=== PATIENT | female | born 1940 | race Asian ===

== ENCOUNTER 2018-02-12 09:49 | Observation (INO) | payer OTHER ==
[2018-02-12 10:02] VITALS: BMI 27.1
--- NOTE | 2018-02-12 10:07 | PDOC ---
History of Present Illness - General Chief Complaint: Shortness of Breath Stated Complaint: SOB Time Seen by Provider: 02/12/18 10:07 History Source: Patient, Family - History of Present Illness Initial Comments: 02/12/18 10:23 77 year old female with PMH HTN, HLD, 1 stent, asthma presents to ED for SOB and palpitations x3 weeks. She states the SOB occurs at rest, she sleeps on 3 pillows a night, is associated with palpitations, diaphoresis, left arm numbness. She states over the last three weeks she has progressed from sleeping with one pillow at night, to 3 pillows at night. PCP - Dr. Gasca Optomechanical Engineer - Dr. Mcknight Surgical history - none Allergies - NKDA Past History - Past Medical History Allergies/Adverse Reactions: Allergies Allergy/AdvReac Type Severity Reaction Status Date / Time No Known Allergies Allergy Verified 02/12/18 10:02 Home Medications: Ambulatory Orders Albuterol Sulfate [Proventil HFA Inhaler -] 1 - 2 inh PO TID 10/04/13 Atorvastatin Ca [Lipitor] 10 mg PO HS 10/04/13 Aspirin [ASA -] 81 mg PO DAILY 05/04/15 Budesonide/Formeterol Fumarate [SYMBICORT 160/4.5mcg -] 1 inh PO DAILY 01/14/16 Losartan Potassium 50 mg PO DAILY #30 tablet 01/15/16 Meloxicam [Mobic (Nf) -] 15 mg PO DAILY #90 tablet MDD 15mg 12/09/16 Hydrochlorothiazide 12.5 mg PO DAILY 02/12/18 Asthma: Yes Cardiac Disorders: Yes (CAD) COPD: No CHF: No HTN: Yes Hypercholesterolemia: Yes - Surgical History Cardiac Surgery: Yes (stents) - Suicide/Smoking/Psychosocial Hx Smoking History: Never smoked Number of Cigarettes Smoked Daily: 0 Hx Alcohol Use: No Drug/Substance Use Hx: No Substance Use Type: None Review of Systems - Review of Systems Able to Perform ROS?: Yes Comments:: 02/12/18 10:28 ROS performed with patient and her daughter. General: denies fever, chills, night sweats, generalized weakness. HEENT: denies sore throat, rhinorrhea, ear pain. Heart: admits to palpitations, diaphoresis. denies chest pain, syncope, lower extremity swelling. Respiratory: admits to shortness of breath, cough, clear sputum production. denies hematemesis. Abdomen: denies abdominal pain, nausea, vomiting, diarrhea, constipation, blood in stool. : denies dysuria, urinary frequency, hematuria, urinary incontinence. Back: denies back pain, flank pain. Musculoskeletal: denies joint pain, muscle pain, joint swelling. Neurological: admits to left arm numbness. denies headache, dizziness, numbness , tingling, weakness. Skin: denies rash, laceration, abrasion. *Physical Exam - Vital Signs Last Vital Signs Temp Pulse Resp BP Pulse Ox 98.4 F 80 18 133/68 99 02/12/18 09:59 02/12/18 09:59 02/12/18 09:59 02/12/18 09:59 02/12/18 09:59 - Physical Exam Comments: 02/12/18 10:29 Appearance: comfortable. HEENT: head is normocephalic, atraumatic. EOMI. PERRLA. Neck: supple. Full ROM. Heart: no tachycardia. regular rhythm. no murmurs, rubs or gallops. Lungs: clear to auscultation bilaterally. no crackles, rhonchi or wheezing. no stridor. Abdomen: soft, nontender. normal bowel sounds. no rebound, guarding, masses. Back: no CVA tenderness. Extremities: Peripheral pulses intact. No lower extremity edema. Neurological: Alert. Oriented x3. CN 2-12 grossly intact. Moves all four extremities. Heart Score/ECG Review - ECG Impressions Comment:: 02/12/18 11:56 Rate 63. Regular. Normal axis. No acute ST changes. ED Treatment Course - LABORATORY CBC & Chemistry Diagram: 02/12/18 11:20 02/12/18 10:41 Medical Decision Making - Medical Decision Making 02/12/18 10:30 77 year old female with PMH HTN, HLD, 1 stent, asthma presenting for SOB associated with palpitations, diaphoresis, cough, left arm numbness x3 weeks. Denies chest pain, fever, chills, nausea, vomiting, abdominal pain, lightheadedness, dizziness, weakness. Initial Vital Signs Temp Pulse Resp BP Pulse Ox 98.4 F 80 18 133/68 99 02/12/18 09:59 02/12/18 09:59 02/12/18 09:59 02/12/18 09:59 02/12/18 09:59 Afebrile. No tachycardia or bradycardia. No hypotension. Pending EKG, CXR, labs, UA. 02/12/18 12:21 No leukocytosis. No kidney dysfunction. Troponin negative. TSH normal. BNP 113.05 HEART score = 4 *DC/Admit/Observation/Transfer Diagnosis at time of Disposition: Shortness of breath, Palpitations, Hypertension, HLD (hyperlipidemia), CAD ( coronary artery disease), Asthma - Discharge Dispostion Condition at time of disposition: Stable Decision to Admit order: Yes - Referrals Referrals: Girish Gasca MD [Primary Care Provider] - - Patient Instructions - Post Discharge Activity
--- NOTE | 2018-02-12 10:26 | PDOC ---
Attending Attestation - Resident Resident Name: Olga Swann - ED Attending Attestation I have performed the following: I have examined & evaluated the patient, The case was reviewed & discussed with the resident, I agree w/resident's findings & plan, Exceptions are as noted - HPI HPI: 02/12/18 10:36 77-year-old female with a history of hypertension, hyperlipidemia, asthma, arthritis, CAD status post stent presents emergency Department with 2 weeks of progressive palpitations and 2 days of shortness of breath. Patient has seen her automatic winder operator Dr. Mcknight for any symptoms and was given a heart monitor which patient's daughter reports has broken twice. Patient also reports intermittent right and left-sided varying chest pain for months. For the last 3 weeks patient has been sleeping on 3 pillows due to her shortness of breath, however last night was unable to sleep due to the shortness of breath. Patient does not take any water pills. Patient normally takes walks around her block with her and can usually do 3 laps however has been having difficulty recently. Her daughter states she becomes winded now at the end of her walks. Denies any fevers or chills. Patient has a chronic nonproductive cough due to ALLERGIES but no new cough. Denies recent travel or immobility. - Physicial Exam PE: 02/12/18 10:52 GENERAL: Awake, alert, and fully oriented, in no acute distress HEAD: No signs of trauma EYES: PERRLA, EOMI, sclera anicteric, conjunctiva clear ENT: Auricles normal inspection, hearing grossly normal, nares patent, oropharynx clear without exudates. Moist mucosa NECK: Normal ROM, supple, no lymphadenopathy, JVD, or masses LUNGS: Breath sounds equal, clear to auscultation bilaterally. No wheezes, and no crackles HEART: Regular rate and rhythm, normal S1 and S2, no murmurs, rubs or gallops ABDOMEN: Soft, nontender, normoactive bowel sounds. No guarding, no rebound. No masses EXTREMITIES: Normal range of motion, trace b/l LE edema to the mid calves. No clubbing or cyanosis. No cords, erythema, or tenderness NEUROLOGICAL: Normal speech, cranial nerves intact, negative pronator drift, 5/ 5 strength in all 4 extremities, normal sensation to light touch in all 4 extremities, normal cerebellar exam, normal gait, normal reflexes and tone SKIN: Warm, Dry, normal turgor, no rashes or lesions noted. - Medical Decision Making 02/12/18 10:56 77yo F hx HTN, HL, CAD presents to the ED with SOB at exertion and rest. Pt also reports 3 pillow orthopnea. Vitals wnl. Exam with trace LE edema. Concern for ACS vs CHF. Plan -labs -cxr -ekg -c/s Dr. Mcknight -likely tele obs Heart Score/ECG Review - History History: Moderately suspicious - Electrocardiogram EKG: Normal - Age Age: >/= 65 - Risk Factors Based on the list above the patient has:: >/=3 risk factors or Hx atherosclerotic disease - Troponin Troponin: </= normal limit - Score Heart Score - Total: 5 #1 02/12/18 11:10 Twelve-lead EKG was performed and reviewed by me. Normal sinus rhythm, rate 63. Normal axis and intervals. No ST elevations or T-wave inversions.
[2018-02-12 10:49] LABS: HEMATOCRIT 40.4 % (32.4-45.2); MCH 31.4 pg (25.7-33.7); MCHC 34.6 g/dl (32.0-36.0); MEAN CELL VOLUME 90.8 fl (80-96); PLATELET COUNT 286 K/MM3 (134-434); RBC 4.45 M/mm3 (3.60-5.2); RDW 12.3 % (11.6-15.6); WHITE BLOOD COUNT 6.7 K/mm3 (4.0-10.0)
[2018-02-12 11:15] LABS: INR 0.95 (0.82-1.09); PROTHROMBIN TIME (PATIENT) 10.7 SEC (9.7-13.0)
[2018-02-12 11:17] LABS: ACTIVATED PTT 28.6 SECONDS (25.2-36.5)
[2018-02-12 11:18] LABS: ALBUMIN 3.8 g/dl (3.4-5.0); ANION GAP 10 (8-16); BILIRUBIN,TOTAL 0.8 mg/dL (0.2-1.0); BLOOD UREA NITROGEN 22 mg/dL (7-18); CALCIUM 9.1 mg/dL (8.5-10.1); CHLORIDE 97 mmol/L (98-107); CO2 24 mmol/L (21-32); CREATININE 1.1 mg/dL (0.55-1.02); GLUCOSE,RANDOM 142 mg/dL (74-106); POTASSIUM 3.7 mmol/L (3.5-5.1); SGOT/AST 22 U/L (15-37); SGPT/ALT 30 U/L (12-78); SODIUM 131 mmol/L (136-145); TOT PROT 7.7 g/dl (6.4-8.2)
[2018-02-12 11:21] LABS: ALK PHOS 95 U/L (45-117)
[2018-02-12 11:23] LABS: N-TERMINAL BNP 113.05 pg/ml (5-450)
[2018-02-12 11:31] LABS: BASO % 0.9 % (0-2.0); EOS % 3.3 % (0-4.5); HEMATOCRIT 38.9 % (32.4-45.2); HEMOGLOBIN 13.4 GM/dL (10.7-15.3); LYMPH % 28.9 % (8-40); MCH 31.3 pg (25.7-33.7); MCHC 34.6 g/dl (32.0-36.0); MEAN CELL VOLUME 90.6 fl (80-96); MEAN PLT VOLUME 8.4 fl (7.5-11.1); MONO % 4.5 % (3.8-10.2); NEUT % 62.4 % (42.8-82.8); PLATELET COUNT 295 K/MM3 (134-434); RBC 4.29 M/mm3 (3.60-5.2); RDW 12.6 % (11.6-15.6); WHITE BLOOD COUNT 6.7 K/mm3 (4.0-10.0)
[2018-02-12 12:10] LABS: URINE APPEARANCE CLEAR; URINE BILIRUBIN NEGATIVE (<2.0 mg/dL); URINE COLOR STRAW; URINE GLUCOSE (UA) NEGATIVE (NEGATIVE); URINE KETONE NEGATIVE (NEGATIVE); URINE LEUK ESTERASE NEGATIVE (NEGATIVE); URINE NITRITE NEGATIVE (NEGATIVE); URINE PROTEIN NEGATIVE (NEGATIVE); URINE UROBILINOGEN NEGATIVE mg/dL (0.2-1.0)
[2018-02-12 12:23] LABS: EPI CELLS RARE /HPF (FEW)
[2018-02-12] MEDS ORDERED: ASPIRIN 325 MG TABLET PO ONE (12:26)
[2018-02-12] MEDS ORDERED: ASPIRIN 325 MG TABLET ONE (12:52)
--- NOTE | 2018-02-12 13:12 | HP ---
CHIEF COMPLAINT: shortness of breath, cough PCP: Dr. Gasca HISTORY OF PRESENT ILLNESS: Patient is a 77 year old female with a significant past medical history of hypertension, hyperlipidemia, CAD s/p stents 2008, asthma, syncope and orthostatic hypotension. Patient presents to the ED today with episodes of 3 weeks of worsening shortness of breath with physical activity and now worsening shortness of breath at rest. She often feels intermittent palpitations and sharp mid sternal chest pain at rest. Patient reports propping herself on 3 pillows at night as she is unable to tolerate laying flat. She reports diffused diaphoresis in the past 2 days even with the air conditioner on. Patient normally is able to take walks around the block but has been having difficulty and reports fatigue and unable to complete her normal walks. She denies any fevers or chills. Patient has a chronic nonproductive cough. Patient sees Dr. Mcknight for palpitations and a holter monitor was placed. Patient reports that the holter monitor was not working properly and she was unable to wear it. ER course was notable for: (1) na 131 (2) bun/creat 22/1.1 (3) bnp 113, tsh 1.47 (4) chest xray, no acute pathology Recent Travel: Social History: Smoking: none Alcohol: none Drugs: none Family History: Allergies No Known Allergies Allergy (Verified 02/12/18 10:02) HOME MEDICATIONS: Home Medications Medication Instructions Recorded Albuterol Sulfate [Proventil HFA 1 - 2 inh PO TID 10/04/13 Inhaler -] Atorvastatin Ca [Lipitor] 10 mg PO HS 10/04/13 Aspirin [ASA -] 81 mg PO DAILY 05/04/15 Budesonide/Formeterol Fumarate 1 inh PO DAILY 01/14/16 [SYMBICORT 160/4.5mcg -] Losartan Potassium 50 mg PO DAILY #30 tablet 01/15/16 Meloxicam [Mobic (Nf) -] 15 mg PO DAILY #90 tablet MDD 15mg 12/09/16 Hydrochlorothiazide 12.5 mg PO DAILY 02/12/18 PHYSICAL EXAMINATION Vital Signs - 24 hr 02/12/18 02/12/18 02/12/18 09:59 12:15 12:16 Temperature 98.4 F Pulse Rate 80 Pulse Rate [ 68 Apical] Respiratory 18 20 Rate Blood Pressure 133/68 Blood Pressure 116/58 [Left Arm] O2 Sat by Pulse 99 98 98 Oximetry (%) GENERAL: Awake, alert, and fully oriented, in no acute distress. HEAD: Normal with no signs of trauma. EYES: Pupils equal, round and reactive to light, extraocular movements intact, sclera anicteric, conjunctiva clear. No lid lag. EARS, NOSE, THROAT: Ears normal, nares patent, oropharynx clear without exudates. Moist mucous membranes. NECK: Normal range of motion, supple without lymphadenopathy, JVD, or masses. LUNGS: Breath sounds equal, clear to auscultation bilaterally. No wheezes, and no crackles. No accessory muscle use. HEART: Regular rate and rhythm ABDOMEN: Soft, nontender, not distended, normoactive bowel sounds, no guarding, no rebound, no masses. No hepatomegaly or splenomegaly. MUSCULOSKELETAL: Normal range of motion at all joints. No bony deformities or tenderness. No CVA tenderness. UPPER EXTREMITIES: 2+ pulses, warm, well-perfused. No cyanosis. No clubbing. No peripheral edema. LOWER EXTREMITIES: 2+ pulses, warm, well-perfused. No calf tenderness. No peripheral edema. NEUROLOGICAL: Normal speech. PSYCHIATRIC: Cooperative. Good eye contact. Appropriate mood and affect. SKIN: Warm, dry, normal turgor, no rashes or lesions noted, normal capillary refill. Laboratory Results - last 24 hr 02/12/18 02/12/18 02/12/18 10:41 10:41 10:41 WBC 6.7 RBC 4.45 Hgb 14.0 Hct 40.4 MCV 90.8 MCH 31.4 MCHC 34.6 RDW 12.3 Plt Count 286 MPV 8.0 D Absolute Neuts (auto) Neutrophils % Lymphocytes % Monocytes % Eosinophils % Basophils % Nucleated RBC % PT with INR 10.70 INR 0.95 PTT (Actin FS) 28.6 Sodium 131 L Potassium 3.7 Chloride 97 L Carbon Dioxide 24 Anion Gap 10 BUN 22 H Creatinine 1.1 H Creat Clearance w eGFR 48.04 Random Glucose 142 H Calcium 9.1 Total Bilirubin 0.8 AST 22 ALT 30 Alkaline Phosphatase 95 Creatine Kinase 144 Troponin I 0.02 B-Natriuretic Peptide Total Protein 7.7 Albumin 3.8 TSH Urine Color Urine Appearance Urine pH Ur Specific [place] Urine Protein Urine Glucose (UA) Urine Ketones Urine Blood Urine Nitrite Urine Bilirubin Urine Urobilinogen Ur Leukocyte Esterase Urine WBC (Auto) Urine RBC (Auto) Ur Epithelial Cells 02/12/18 02/12/18 02/12/18 10:41 11:20 11:54 WBC 6.7 RBC 4.29 Hgb 13.4 Hct 38.9 MCV 90.6 MCH 31.3 MCHC 34.6 RDW 12.6 Plt Count 295 MPV 8.4 Absolute Neuts (auto) 4.2 Neutrophils % 62.4 Lymphocytes % 28.9 Monocytes % 4.5 Eosinophils % 3.3 Basophils % 0.9 Nucleated RBC % 0 PT with INR INR PTT (Actin FS) Sodium Potassium Chloride Carbon Dioxide Anion Gap BUN Creatinine Creat Clearance w eGFR Random Glucose Calcium Total Bilirubin AST ALT Alkaline Phosphatase Creatine Kinase Troponin I B-Natriuretic Peptide 113.05 Total Protein Albumin TSH 1.47 Urine Color Straw Urine Appearance Clear Urine pH 5.0 Ur Specific [place] 1.005 Urine Protein Negative Urine Glucose (UA) Negative Urine Ketones Negative Urine Blood 1+ H Urine Nitrite Negative Urine Bilirubin Negative Urine Urobilinogen Negative Ur Leukocyte Esterase Negative Urine WBC (Auto) 1 Urine RBC (Auto) <1 Ur Epithelial Cells Rare ASSESSMENT/PLAN: Patient is a 77 year old female with a significant past medical history of hypertension, hyperlipidemia, CAD s/p stents 2008, asthma, syncope and orthostatic hypotension. Patient presents to the ED today with episodes of 3 weeks of worsening shortness of breath with physical activity and now worsening shortness of breath at rest. She often feels intermittent palpitations and sharp mid sternal chest pain at rest and difficulty laying flat. Card: Shortness of breath/Orthopena: Clear lungs on exam, chest xray with no acute pathology. Tolerating room air. Monitor oxygen saturations pre and post. Rule out ACS/Palpitations: Monitor on tele. ekg within normal limits. trend troponins. Hypertension: Continue home medications of Losartan and HCTZ CAD s/p stents: on ASA daily. On Lipitor. Pulm: Asthma: not in acute exacerbation. On home inhalers. fen PO adequate monitor electrolytes low salt diet prophy LOS <48 hours, deferred a/c Visit type - Emergency Visit Emergency Visit: Yes ED Registration Date: 02/12/18 Care time: The patient presented to the Emergency Department on the above date and was hospitalized for further evaluation of their emergent condition. - New Patient This patient is new to me today: Yes Date on this admission: 02/13/18 - Critical Care Critical Care patient: No Hospitalist Screening - Colonoscopy Questionnaire Colonoscopy Questionnaire: Colonoscopy Questionnaire - Patient: 50 - 75 years old and never had a screening colonoscopy: Unknown History of colon or rectal polyps, or CA: Unknown History of IBD, Crohn's disease or UC: Unknown History of abdominal radiation therapy as a child: Unknown - Relative: 1 with colon or rectal CA, or polyps at age 60 or younger: Unknown Colon or rectal CA diagnosed at age 45 or younger: Unknown Multiple relatives with colon or rectal CA: Unknown - Outcome: Screening Result: Negative Screen
[2018-02-12] MEDS ORDERED: ALBUTEROL SO4 2.5/IPRATROPIUM 0.5 INH SOL 3 ML VIAL.NEB. NEB PRN (14:33)
[2018-02-12] MEDS ORDERED: SODIUM CHLORIDE 1,000 ML IV SCH (14:45)
--- NOTE | 2018-02-12 15:59 | CON.CARD ---
Consult Consult Specialty:: Cardiology Referred by:: ER Reason for Consultation:: palpitations, sob - History of Present Illness Chief Complaint: palpitations sob History of Present Illness: 77 year old woman who follows with me in the office with a history of HTN, HLD, CAD s/p prox and mid LAD stents 2008 in the [facility], cardiac cath 2014 after an abnormal nuclear stress test showed patent stents and otherwise non- obstructive CAD, chronic Asthma, history of orthostatic hypotension and syncope in the setting of intravascular depletion, now admitted with c/o palpitations and sob. Pt was seen recently in the office with c/o palpitations. an event monitor was placed but due to technical difficulties with the monitor at home she has not been able to wear it. she states palpitations occur mainly at night when in bed she feels her heart pounding and then pauses for a second. she also admits to sob and orthopnea. she has been using her symbicort and she has been using her Albuterol 2-3 times per day for the past several weeks including right before bed. - Past Medical History Cardio/Vascular: Yes: CAD, HTN, Hyperlipdemia Pulmonary: Yes: Asthma - Past Surgical History Past Surgical History: Yes: Stent - Alcohol/Substance Use Hx Alcohol Use: No History of Substance Use: reports: None - Smoking History Smoking history: Never smoked Aproximately how many cigarettes per day: 0 - Social History Usual Living Arrangement: With Spouse ADL: Independent History of Recent Travel: No Home Medications - Allergies Allergies/Adverse Reactions: Allergies Allergy/AdvReac Type Severity Reaction Status Date / Time No Known Allergies Allergy Verified 02/12/18 10:02 - Home Medications Home Medications: Ambulatory Orders Albuterol Sulfate [Proventil HFA Inhaler -] 1 - 2 inh PO TID 10/04/13 Atorvastatin Ca [Lipitor] 10 mg PO HS 10/04/13 Aspirin [ASA -] 81 mg PO DAILY 05/04/15 Budesonide/Formeterol Fumarate [SYMBICORT 160/4.5mcg -] 1 inh PO DAILY 01/14/16 Losartan Potassium 50 mg PO DAILY #30 tablet 01/15/16 Meloxicam [Mobic (Nf) -] 15 mg PO DAILY #90 tablet MDD 15mg 12/09/16 Hydrochlorothiazide 12.5 mg PO DAILY 02/12/18 Vital Signs: Vital Signs Temperature 98.4 F 02/12/18 09:59 Pulse Rate 68 02/12/18 12:15 Respiratory Rate 20 02/12/18 12:15 Blood Pressure 116/58 02/12/18 12:15 O2 Sat by Pulse Oximetry (%) 98 02/12/18 12:16 - Other Data Labs, Other Data: CBC, BMP 02/12/18 11:20 02/12/18 10:41 INR, PTT INR 0.95 (0.82-1.09) 02/12/18 10:41 Troponin, BNP 02/12/18 02/12/18 10:41 10:41 Troponin I 0.02 B-Natriuretic Peptide 113.05 Troponin, BNP 02/12/18 02/12/18 10:41 10:41 Troponin I 0.02 B-Natriuretic Peptide 113.05 Assessment/Plan 77 year old woman who follows with me in the office with a history of HTN, HLD, CAD s/p prox and mid LAD stents 2008 in the [facility], cardiac cath 2014 after an abnormal nuclear stress test showed patent stents and otherwise non- obstructive CAD, chronic Asthma, history of orthostatic hypotension and syncope in the setting of intravascular depletion, now admitted with c/o palpitations and sob. Pt was seen recently in the office with c/o palpitations. an event monitor was placed but due to technical difficulties with the monitor at home she has not been able to wear it. she states palpitations occur mainly at night when in bed she feels her heart pounding and then pauses for a second. she also admits to sob and orthopnea. she has been using her symbicort and she has been using her Albuterol 2-3 times per day for the past several weeks including right before bed. Palpitations-unknown etiology but based on history sounds most likely to be PVCs -possibly stimulated by frequent Albuterol use -ekg is wnl -cardiac enzymes wnl -monitor on tele overnight to evaluate for arrhythmia -if no events overnight pt is acceptable for discharge home from cardiac standpoint with close outpatient fup SOB-likely due to chronic asthma -ideally would have pulmonary evaluation and PFTs as outpatient but due to insurance she has been unable to get to a director of strategic sourcing -no signs of CHF on exam History of Syncope-likely secondary to orthostatic hypotension secondary to dehydration -cont home meds for now -encourage po fluid intake -hold off on IVF hydration for now CAD s/p LAD stents 2008 -cont ASA 81mg daily -cont statin -not on bblocker due to asthma and history of sinus bradycardia HTN-have taken a lenient approach as outpatient to HTN with target <150/90 due to history of orthostatic hypotension -cont home meds for now
[2018-02-12] MEDS ORDERED: ATORVASTATIN CA 10 MG TABLET (FP) PO SCH (22:00)
[2018-02-12] MEDS: BUDESONIDE/FORMETEROL FUMARATE 160/4.5 mcg INHALER IH SCH (22:07)
[2018-02-13 07:19] LABS: BASO % 0.9 % (0-2.0); EOS % 4.6 % (0-4.5); HEMATOCRIT 39.9 % (32.4-45.2); HEMOGLOBIN 13.8 GM/dL (10.7-15.3); LYMPH % 36.2 % (8-40); MCH 31.6 pg (25.7-33.7); MCHC 34.5 g/dl (32.0-36.0); MEAN CELL VOLUME 91.6 fl (80-96); MEAN PLT VOLUME 7.9 fl (7.5-11.1); MONO % 5.9 % (3.8-10.2); NEUT % 52.4 % (42.8-82.8); PLATELET COUNT 272 K/MM3 (134-434); RBC 4.36 M/mm3 (3.60-5.2); RDW 12.5 % (11.6-15.6); WHITE BLOOD COUNT 7.5 K/mm3 (4.0-10.0)
[2018-02-13 07:56] LABS: ALBUMIN 3.6 g/dl (3.4-5.0); ANION GAP 7 (8-16); BILIRUBIN,TOTAL 0.8 mg/dL (0.2-1.0); BLOOD UREA NITROGEN 19 mg/dL (7-18); CALCIUM 9.3 mg/dL (8.5-10.1); CHLORIDE 102 mmol/L (98-107); CO2 28 mmol/L (21-32); CREATININE 0.9 mg/dL (0.55-1.02); GLUCOSE,RANDOM 117 mg/dL (74-106); MAGNESIUM 2.1 mg/dL (1.8-2.4); POTASSIUM 4.3 mmol/L (3.5-5.1); SGOT/AST 16 U/L (15-37); SGPT/ALT 27 U/L (12-78); SODIUM 137 mmol/L (136-145)
[2018-02-13 07:58] LABS: ALK PHOS 91 U/L (45-117); TOT PROT 7.3 g/dl (6.4-8.2)
[2018-02-13] MEDS ORDERED: LOSARTAN POTASSIUM 50 MG TABLET (FP) PO SCH (10:00)
[2018-02-13] MEDS ORDERED: BUDESONIDE/FORMETEROL FUMARATE 160/4.5 mcg INHALER IH SCH (10:00)
[2018-02-13] MEDS ORDERED: ASPIRIN 81 MG CHEWABLE TABLETS PO SCH (10:00)
[2018-02-13] MEDS ORDERED: HYDROCHLOROTHIAZIDE 12.5 MG CAPSULE (FP) PO SCH (10:00)
[2018-02-13] MEDS ORDERED: PT OWN MED DRAWER 7, Y5N ONE (10:20)
[2018-02-13] MEDS: BUDESONIDE/FORMETEROL FUMARATE 160/4.5 mcg INHALER IH SCH (10:21)
--- NOTE | 2018-02-13 10:21 | EKG ---
Test Reason : Blood Pressure : / mmHG Vent. Rate : 063 BPM Atrial Rate : 063 BPM P-R Int : 146 ms QRS Dur : 070 ms QT Int : 410 ms P-R-T Axes : 039 063 048 degrees QTc Int : 419 ms NORMAL SINUS RHYTHM NORMAL ECG WHEN COMPARED WITH ECG OF 14-JAN-2016 17:04, NO SIGNIFICANT CHANGE WAS FOUND Confirmed by JAGRUTI GRISSOM MD ([id number]) on 02/13/2018 10:21:14 AM Referred By: Confirmed By:JAGRUTI GRISSOM MD
--- NOTE | 2018-02-13 14:13 | PN ---
Progress Note, Physician Chief Complaint: palpitations History of Present Illness: 77 year old woman who follows with me in the office with a history of HTN, HLD, CAD s/p prox and mid LAD stents 2008 in the [facility], cardiac cath 2014 after an abnormal nuclear stress test showed patent stents and otherwise non- obstructive CAD, chronic Asthma, history of orthostatic hypotension and syncope in the setting of intravascular depletion, now admitted with c/o palpitations and sob. Pt was seen recently in the office with c/o palpitations. an event monitor was placed but due to technical difficulties with the monitor at home she has not been able to wear it. she states palpitations occur mainly at night when in bed she feels her heart pounding and then pauses for a second. she also admits to sob and orthopnea. she has been using her symbicort and she has been using her Albuterol 2-3 times per day for the past several weeks including right before bed. - Current Medication List Current Medications: Active Medications Albuterol/Ipratropium (Duoneb -) 1 amp NEB Q4H PRN PRN Reason: SHORTNESS OF BREATH Aspirin (Asa -) 81 mg PO DAILY [facility] Last Admin: 02/13/18 10:21 Dose: 81 mg Atorvastatin Calcium (Lipitor -) 10 mg PO HS [facility] Last Admin: 02/12/18 22:08 Dose: 10 mg Budesonide/Formoterol Fumarate (Symbicort 160/4.5mcg -) 2 puff IH BID [facility] Last Admin: 02/13/18 10:21 Dose: 2 puff Hydrochlorothiazide (Hctz -) 12.5 mg PO DAILY [facility] Last Admin: 02/13/18 10:21 Dose: 12.5 mg Losartan Potassium (Cozaar -) 50 mg PO DAILY [facility] Last Admin: 02/13/18 10:21 Dose: 50 mg - Objective Vital Signs: Vital Signs Temperature 98.3 F 02/13/18 05:54 Pulse Rate 56 L 02/13/18 05:54 Respiratory Rate 18 02/13/18 09:00 Blood Pressure 131/65 02/13/18 05:54 O2 Sat by Pulse Oximetry (%) 98 02/13/18 09:00 Constitutional: Yes: No Distress Neck: Yes: WNL Cardiovascular: Yes: Regular Rate and Rhythm, S1, S2. No: JVD, Murmur Respiratory: Yes: CTA Bilaterally Gastrointestinal: Yes: Soft Edema: No Labs: CBC, BMP 02/13/18 06:30 02/13/18 06:30 INR, PTT INR 0.95 (0.82-1.09) 02/12/18 10:41 Problem List - Problems (1) Palpitations Code(s): R00.2 - PALPITATIONS Assessment/Plan 77 year old woman who follows with me in the office with a history of HTN, HLD, CAD s/p prox and mid LAD stents 2008 in the [facility], cardiac cath 2014 after an abnormal nuclear stress test showed patent stents and otherwise non- obstructive CAD, chronic Asthma, history of orthostatic hypotension and syncope in the setting of intravascular depletion, now admitted with c/o palpitations and sob. Pt was seen recently in the office with c/o palpitations. an event monitor was placed but due to technical difficulties with the monitor at home she has not been able to wear it. she states palpitations occur mainly at night when in bed she feels her heart pounding and then pauses for a second. she also admits to sob and orthopnea. she has been using her symbicort and she has been using her Albuterol 2-3 times per day for the past several weeks including right before bed. Palpitations- likely due to pvc's. On telemetry shows occasional pvc's and ventricular trigeminy. On atrial run 14 beats. TSH normal Lytes normal Exam unremarkable Baseline ekg normal Description of symptoms sound like pvc however baseline HR runs 50s-60s. Cannot add any av jerald blocking agents at this time. No further cardiac work up as inpatient. Avoid caffeine. Albuterol only as needed as can exacerbate. Follow up with Dr. Mcknight as outpatient. Can have 24 hour holter at that time to see pvc burden and if symptoms very bad can consider ablation. CAD s/p LAD stents 2008 -cont ASA 81mg daily -cont statin -not on bblocker due to asthma and history of sinus bradycardia Plan for DC home.
--- NOTE | 2018-02-13 14:38 | DS ---
Physical Exam: SUBJECTIVE: In no acute distress, feels well. comfortable. OBJECTIVE: discharge home with cardiology follow up outpatient no respiratory distress, vitals stable, patient feels well, ambulated with respiratory therapist with normal oxygen saturations Vital Signs Period Temp Pulse Resp BP Sys/Bennett Pulse Ox Last 24 Hr 97.3 F-98.5 F 56-85 18-18 115-137/61-67 98-98 PHYSICAL EXAM GENERAL: Awake, alert, and fully oriented, in no acute distress. HEAD: Normal with no signs of trauma. EYES: Pupils equal, round and reactive to light, extraocular movements intact, sclera anicteric, conjunctiva clear. No lid lag. EARS, NOSE, THROAT: Ears normal, nares patent, oropharynx clear without exudates. Moist mucous membranes. NECK: Normal range of motion, supple without lymphadenopathy, JVD, or masses. LUNGS: Breath sounds equal, clear to auscultation bilaterally. No wheezes, and no crackles. No accessory muscle use. HEART: Regular rate and rhythm ABDOMEN: Soft, nontender, not distended, normoactive bowel sounds, no guarding, no rebound, no masses. No hepatomegaly or splenomegaly. MUSCULOSKELETAL: Normal range of motion at all joints. No bony deformities or tenderness. No CVA tenderness. UPPER EXTREMITIES: 2+ pulses, warm, well-perfused. No cyanosis. No clubbing. No peripheral edema. LOWER EXTREMITIES: 2+ pulses, warm, well-perfused. No calf tenderness. No peripheral edema. NEUROLOGICAL: Normal speech. PSYCHIATRIC: Cooperative. Good eye contact. Appropriate mood and affect. SKIN: Warm, dry, normal turgor, no rashes or lesions noted, normal capillary refill. LABS Laboratory Results - last 24 hr 02/12/18 02/12/18 02/12/18 17:03 18:04 23:30 WBC RBC Hgb Hct MCV MCH MCHC RDW Plt Count MPV Absolute Neuts (auto) Neutrophils % Lymphocytes % Monocytes % Eosinophils % Basophils % Nucleated RBC % Sodium Potassium Chloride Carbon Dioxide Anion Gap BUN Creatinine Creat Clearance w eGFR POC Glucometer 130.84088 114 Random Glucose Calcium Magnesium Total Bilirubin AST ALT Alkaline Phosphatase Troponin I 0.02 Total Protein Albumin 02/13/18 02/13/18 02/13/18 05:56 06:30 06:30 WBC 7.5 RBC 4.36 Hgb 13.8 Hct 39.9 MCV 91.6 MCH 31.6 MCHC 34.5 RDW 12.5 Plt Count 272 MPV 7.9 Absolute Neuts (auto) 3.9 Neutrophils % 52.4 Lymphocytes % 36.2 D Monocytes % 5.9 Eosinophils % 4.6 H Basophils % 0.9 Nucleated RBC % 0 Sodium 137 Potassium 4.3 Chloride 102 Carbon Dioxide 28 Anion Gap 7 L BUN 19 H Creatinine 0.9 Creat Clearance w eGFR > 60 POC Glucometer 112 Random Glucose 117 H Calcium 9.3 Magnesium 2.1 Total Bilirubin 0.8 AST 16 ALT 27 Alkaline Phosphatase 91 Troponin I 0.02 Total Protein 7.3 Albumin 3.6 02/13/18 06:30 WBC RBC Hgb Hct MCV MCH MCHC RDW Plt Count MPV Absolute Neuts (auto) Neutrophils % Lymphocytes % Monocytes % Eosinophils % Basophils % Nucleated RBC % Sodium Potassium Chloride Carbon Dioxide Anion Gap BUN Creatinine Creat Clearance w eGFR POC Glucometer Random Glucose Calcium Magnesium Total Bilirubin AST ALT Alkaline Phosphatase Troponin I Cancelled Total Protein Albumin HOSPITAL COURSE: Date of Admission:02/12/18 Date of Discharge: 02/13/18 Patient is a 77 year old female with a significant past medical history of hypertension, hyperlipidemia, CAD s/p stents 2008, asthma, syncope and orthostatic hypotension. Patient presents to the ED today with episodes of 3 weeks of worsening shortness of breath with physical activity and now worsening shortness of breath at rest. She often feels intermittent palpitations and sharp mid sternal chest pain at rest and difficulty laying flat. Card: Shortness of breath/Orthopena: resolved Clear lungs on exam, chest xray with no acute pathology. Tolerating room air. Pre and post oxygen normal saturations. Ruled out ACS/Palpitations: PVCs on tele. ekg within normal limits. Normal troponins. Cardiology follow up outpatient. Hypertension: Continue home medications of Losartan and HCTZ CAD s/p stents: on ASA daily. On Lipitor. Pulm: Asthma: not in acute exacerbation. On home inhalers. Discharge home with close follow up with shank rander. Minutes to complete discharge: 45 Discharge Summary Reason For Visit: HYPERTENSION; SHORTNESS OF BREATH; PALPITATIONS Current Active Problems Palpitations (Acute) Shortness of breath (Acute) Asthma (Chronic) CAD (coronary artery disease) (Chronic) HLD (hyperlipidemia) (Chronic) Hypertension (Chronic) Condition: Improved - Instructions Diet, Activity, Other Instructions: Mrs Sharma: You were under observation in the hospital for palpitation and shortness of breath. You were seen by a shank rander and were placed on the night monitor and you were noted to have premature ventricular contractions. This means that your heart has premature beats. Please continue to hydrate with at least 6-8 glasses of water per day and avoid caffeine and products that contain caffeine. We also recommend that you use Albuterol only as needed as albuterol can cause premature heart beats. Dr. Mcknight would like for you to follow up in his office for further monitoring. Please make an appointment with Dr. Mcknight. We tested your oxygen saturations with a respiratory therapist and the results were normal. Continue Aspirin 81mg daily, and your current home medications. Referrals: Girish Gasca MD [Primary Care Provider] - 1 Week Disposition: HOME - Home Medications Comprehensive Discharge Medication List: Ambulatory Orders Albuterol Sulfate [Proventil HFA Inhaler -] 1 - 2 inh PO TID 10/04/13 Atorvastatin Ca [Lipitor] 10 mg PO HS 10/04/13 Aspirin [ASA -] 81 mg PO DAILY 05/04/15 Budesonide/Formeterol Fumarate [SYMBICORT 160/4.5mcg -] 1 inh PO DAILY 01/14/16 Losartan Potassium 50 mg PO DAILY #30 tablet 01/15/16 Meloxicam [Mobic (Nf) -] 15 mg PO DAILY #90 tablet MDD 15mg 12/09/16 Hydrochlorothiazide 12.5 mg PO DAILY 02/12/18 This patient is new to me today: No Emergency Visit: Yes ED Registration Date: 02/12/18 Care time: The patient presented to the Emergency Department on the above date and was hospitalized for further evaluation of their emergent condition. Critical Care patient: No - Discharge Referral Referred to [facility] No
[2018-02-13 16:13] VITALS: TEMP 97.8
[2018-02-13 18:39] VITALS: BP 117/57; PULSE 67
== END 2018-02-13 19:11 | disposition home or self-care (01) ==
LOC: JER 09:49 → JERBED 12:19 → J4S 19:53
PROVIDERS: ADMIT Internal Medicine; ATTEND Nurse Practitioner Family
PROC: 3E0F7GC Introduction of Other Therapeutic Substance into Respiratory Tract, Via Natural or Artificial Opening (ICD-10-PCS; principal; 2018-02-12)
PROC: 3E0337Z Introduction of Electrolytic and Water Balance Substance into Peripheral Vein, Percutaneous Approach (ICD-10-PCS; 2018-02-12)
DX: R06.02 Shortness of breath (principal); R00.2 Palpitations; I10 Essential (primary) hypertension; E78.5 Hyperlipidemia, unspecified; I25.10 Atherosclerotic heart disease of native coronary artery without angina pectoris; J45.909 Unspecified asthma, uncomplicated; Z95.5 Presence of coronary angioplasty implant and graft; Z79.82 Long term (current) use of aspirin
CPT/HCPCS: 36415; 71046-TC-FY; 80053; 81003; 81015; 82550; 82962; 83735; 83880; 84443; 84484; 85025; 85027; 85610; 85730; 93005; 93010; 94640; 94761; 99285-25; G0378; J7030

== ENCOUNTER 2022-01-31 12:47 | Observation (INO) | payer OTHER ==
[2022-01-31 16:00] LABS: BASO % 0.4 % (0-2.0); EOS % 0.8 % (0-4.5); HEMATOCRIT 43.1 % (32.4-45.2); HEMOGLOBIN 14.6 GM/dL (10.7-15.3); LYMPH % 16.8 % (8-40); MCHC 33.8 g/dl (32.0-36.0); MEAN CELL VOLUME 88.7 fl (80-96); MEAN PLT VOLUME 7.3 fl (7.5-11.1); MONO % 2.9 % (3.8-10.2); NEUT % 79.1 % (42.8-82.8); PLATELET COUNT 269 10^3/uL (134-434); RBC 4.85 M/mm3 (3.60-5.2); RDW 12.6 % (11.6-15.6); WHITE BLOOD COUNT 12.6 K/mm3 (4.0-10.0)
[2022-01-31 16:03] LABS: EPI CELLS 33 /uL (0-25.1); HYALINE CASTS 1 /uL (0-3.1); PH,URINE 5.5 (5.0-8.0); URINE APPEARANCE CLEAR; URINE BACTERIA 1096 /uL (0-1359); URINE BILIRUBIN NEGATIVE (NEGATIVE); URINE COLOR YELLOW; URINE GLUCOSE (UA) 3+ (NEGATIVE); URINE KETONE NEGATIVE (NEGATIVE); URINE LEUK ESTERASE NEGATIVE (NEGATIVE); URINE NITRITE NEGATIVE (NEGATIVE); URINE PROTEIN 1+ (NEGATIVE); URINE RBC 3 /uL (0-23.9); URINE UROBILINOGEN 0.2 mg/dL (0.2-1.0); URINE WBC 44 /uL (0-25.8)
[2022-01-31 16:19] LABS: ALBUMIN 3.6 g/dl (3.4-5.0); CALCIUM 9.5 mg/dL (8.5-10.1)
[2022-01-31 16:20] LABS: BLOOD UREA NITROGEN 22.1 mg/dL (7-18)
[2022-01-31 16:22] LABS: CREATININE 0.9 mg/dL (0.55-1.3)
[2022-01-31 16:24] LABS: BILIRUBIN,TOTAL 0.6 mg/dL (0.2-1); TOT PROT 7.5 g/dl (6.4-8.2)
[2022-01-31] MEDS ORDERED: LACTATED RINGERS SOLUTION 1000 ML INFUS.BAG IV ONE (17:00)
[2022-01-31] MEDS ORDERED: ACETAMINOPHEN 325 MG TABLET (FP) PO PRN (17:14)
[2022-01-31] MEDS ORDERED: LACTATED RINGERS SOLUTION 1,000 ML/1,000 ML INFUS.BAG IV SCH (17:15)
[2022-01-31] MEDS ORDERED: ENOXAPARIN NA (PORCINE) 40 MG/0.4 ML DISP.SYRIN SQ ONE (17:17)
[2022-01-31] MEDS ORDERED: PANTOPRAZOLE 40 MG TABLET PO ONE (17:17)
[2022-01-31] MEDS: ENOXAPARIN NA (PORCINE) 40 MG/0.4 ML DISP.SYRIN SQ SCH (17:31)
[2022-01-31] MEDS: PANTOPRAZOLE 40 MG TABLET PO SCH (17:31)
[2022-01-31] MEDS: INSULIN SLIDING SCALE (NOVOLOG) 1 VIAL SQ SCH (18:01)
[2022-01-31] MEDS ORDERED: ATORVASTATIN CA 10 MG TABLET (FP) ONE (22:41)
[2022-01-31] MEDS ORDERED: INSULIN (LEVEMIR) 100 UNITS/ML UNITS SQ ONE (22:43)
[2022-01-31] MEDS: ATORVASTATIN CA 10 MG TABLET (FP) PO SCH (22:50)
[2022-01-31] MEDS: INSULIN (LEVEMIR) 100 UNITS/ML UNITS SQ SCH (23:08)
[2022-02-01] MEDS: INSULIN SLIDING SCALE (NOVOLOG) 1 VIAL SQ SCH ×3 (08:32→16:25)
[2022-02-01] MEDS: INSULIN (LEVEMIR) 100 UNITS/ML UNITS SQ SCH ×2 (08:32→22:00)
[2022-02-01] MEDS ORDERED: ENOXAPARIN NA (PORCINE) 40 MG/0.4 ML DISP.SYRIN SQ ONE (09:25)
[2022-02-01] MEDS ORDERED: PANTOPRAZOLE 40 MG TABLET PO ONE (09:25)
[2022-02-01] MEDS: ENOXAPARIN NA (PORCINE) 40 MG/0.4 ML DISP.SYRIN SQ SCH (09:51)
[2022-02-01] MEDS: PANTOPRAZOLE 40 MG TABLET PO SCH (09:51)
[2022-02-01 10:25] LABS: BASO % 0.6 % (0-2.0); EOS % 2.8 % (0-4.5); HEMATOCRIT 45.5 % (32.4-45.2); HEMOGLOBIN 15.3 GM/dL (10.7-15.3); MCH 30.3 pg (25.7-33.7); MCHC 33.6 g/dl (32.0-36.0); MEAN CELL VOLUME 90.2 fl (80-96); MEAN PLT VOLUME 7.8 fl (7.5-11.1); MONO % 4.8 % (3.8-10.2); NEUT % 54.8 % (42.8-82.8); PLATELET COUNT 288 10^3/uL (134-434); RBC 5.04 M/mm3 (3.60-5.2); RDW 12.7 % (11.6-15.6); WHITE BLOOD COUNT 8.3 K/mm3 (4.0-10.0)
[2022-02-01] MEDS ORDERED: INSULIN (LEVEMIR) 100 UNITS/ML UNITS SQ SCH (12:37)
[2022-02-01 12:56] LABS: CALCIUM 9.1 mg/dL (8.5-10.1)
[2022-02-01 12:57] LABS: BLOOD UREA NITROGEN 16.8 mg/dL (7-18)
[2022-02-01 13:00] LABS: CREATININE 0.8 mg/dL (0.55-1.3)
[2022-02-01] MEDS ORDERED: LACTATED RINGERS SOLUTION 1,000 ML/1,000 ML INFUS.BAG IV SCH (14:03)
[2022-02-01] MEDS ORDERED: KCL 10 MEQ IVPB 30 MEQ/300 ML INFUS.BAG IVPB ONE (16:04)
[2022-02-01] MEDS: KCL 10 MEQ IVPB 10 MEQ/100 ML INFUS.BAG IVPB SCH ×2 (16:14→18:04)
[2022-02-01] MEDS: ATORVASTATIN CA 10 MG TABLET (FP) PO SCH (21:04)
[2022-02-01] MEDS ORDERED: MELATONIN 5 MG TABLETS PO PRN (22:37)
[2022-02-02 00:29] VITALS: TEMP 98.1; BMI 25.9
[2022-02-02 03:06] VITALS: BP 123/75; PULSE 60
[2022-02-02] MEDS: INSULIN SLIDING SCALE (NOVOLOG) 1 VIAL SQ SCH ×2 (06:12→10:50)
[2022-02-02] MEDS: INSULIN (LEVEMIR) 100 UNITS/ML UNITS SQ SCH (06:12)
[2022-02-02 07:57] LABS: BASO % 0.9 % (0-2.0); HEMATOCRIT 41.7 % (32.4-45.2); HEMOGLOBIN 14.1 GM/dL (10.7-15.3); LYMPH % 37.9 % (8-40); MCH 30.4 pg (25.7-33.7); MCHC 33.9 g/dl (32.0-36.0); MEAN CELL VOLUME 89.7 fl (80-96); MEAN PLT VOLUME 8.1 fl (7.5-11.1); MONO % 5.3 % (3.8-10.2); NEUT % 51.9 % (42.8-82.8); PLATELET COUNT 279 10^3/uL (134-434); RBC 4.64 M/mm3 (3.60-5.2); RDW 12.9 % (11.6-15.6); WHITE BLOOD COUNT 8.7 K/mm3 (4.0-10.0)
[2022-02-02 10:05] LABS: CALCIUM 9.3 mg/dL (8.5-10.1)
[2022-02-02 10:09] LABS: CREATININE 0.7 mg/dL (0.55-1.3)
[2022-02-02] MEDS: PANTOPRAZOLE 40 MG TABLET PO SCH (10:10)
[2022-02-02] MEDS: ENOXAPARIN NA (PORCINE) 40 MG/0.4 ML DISP.SYRIN SQ SCH (10:10)
== END 2022-02-02 11:41 | disposition home or self-care (01) ==
LOC: JER 12:47 → JERBED 16:37 → J4W 02-01 18:49
PROVIDERS: ADMIT Internal Medicine; ATTEND Internal Medicine
PROC: 3E023GC Introduction of Other Therapeutic Substance into Muscle, Percutaneous Approach (ICD-10-PCS; principal; 2022-01-31)
PROC: 3E013VG Introduction of Insulin into Subcutaneous Tissue, Percutaneous Approach (ICD-10-PCS; 2022-01-31)
PROC: 3E0337Z Introduction of Electrolytic and Water Balance Substance into Peripheral Vein, Percutaneous Approach (ICD-10-PCS; 2022-01-31)
PROC: 3E033GC Introduction of Other Therapeutic Substance into Peripheral Vein, Percutaneous Approach (ICD-10-PCS; 2022-01-31)
DX: I25.10 Atherosclerotic heart disease of native coronary artery without angina pectoris (principal); E11.9 Type 2 diabetes mellitus without complications; R55 Syncope and collapse; E78.5 Hyperlipidemia, unspecified; I11.9 Hypertensive heart disease without heart failure; R01.1 Cardiac murmur, unspecified; Z95.5 Presence of coronary angioplasty implant and graft; D72.819 Decreased white blood cell count, unspecified; M19.90 Unspecified osteoarthritis, unspecified site
CPT/HCPCS: 0241U-QW; 36415; 70450-TC; 71045-TC-FY; 80048; 80053; 81003; 82607; 82962; 83036; 84484; 85025; 87086; 93005; 93010; 96361; 96365; 96372; 97116-GP; 97161-GP; 99285-25; G0378

== ENCOUNTER 2023-07-06 18:13 | Emergency (ER) | payer OTHER ==
[2023-07-06 18:27] VITALS: BP 185/77; PULSE 99; RESP 18; TEMP 97.8; BMI 23.0
[2023-07-06 20:22] LABS: EPI CELLS 5 /uL (0-25.1); HYALINE CASTS 0 /uL (0-3.1); URINE APPEARANCE CLEAR; URINE BACTERIA 1203 /uL (0-1359); URINE BILIRUBIN NEGATIVE (NEGATIVE); URINE COLOR YELLOW; URINE GLUCOSE (UA) NEGATIVE (NEGATIVE); URINE KETONE NEGATIVE (NEGATIVE); URINE LEUK ESTERASE 1+ (NEGATIVE); URINE NITRITE NEGATIVE (NEGATIVE); URINE PROTEIN TRACE (NEGATIVE); URINE RBC 11 /uL (0-23.9); URINE UROBILINOGEN 0.2 mg/dL (0.2-1.0); URINE WBC 156 /uL (0-25.8)
== END 2023-07-06 21:39 | disposition home or self-care (01) ==
LOC: JER 18:13
DX: N81.10 Cystocele, unspecified (principal)
CPT/HCPCS: 81003; 87086; 87186; 99283-25